=== PATIENT | female | born 2000 | race Caucasian/White ===

== ENCOUNTER 2021-03-19 09:45 | Emergency (ER) | payer OTHER ==
[2021-03-19 09:55] VITALS: BP 126/79; BMI 23.6
[2021-03-19] MEDS ORDERED: KETOROLAC TROMETHAMINE 30 MG/1 ML VIAL IM ONE (09:57)
[2021-03-19] MEDS ORDERED: ACETAMINOPHEN 500 MG TABLET (FP) PO ONE (09:57)
[2021-03-19 11:21] VITALS: PULSE 87; TEMP 99.2
== END 2021-03-19 11:21 | disposition home or self-care (01) ==
LOC: JER 09:45
PROC: 3E0233Z Introduction of Anti-inflammatory into Muscle, Percutaneous Approach (ICD-10-PCS; principal; 2021-03-19)
DX: R50.9 Fever, unspecified (principal); M79.10 Myalgia, unspecified site; Z11.52 Encounter for screening for COVID-19
CPT/HCPCS: 87804; 99284-25; C9803; U0003; U0005